=== PATIENT | male | born 1950 | race Caucasian/White ===

== ENCOUNTER 2016-08-19 21:14 | Emergency (ER) | payer MEDICARE, OTHER ==
[~2016-08-19] VITALS: Ht 165.1 cm; Wt 75.5 kg
[2016-08-19 21:16] VITALS: Ht 165.1 cm; Wt 75.5 kg
[2016-08-19] MEDS ORDERED: ONDANSETRON 4 MG INJ IV STA (21:36)
[2016-08-19] MEDS ORDERED: morphine 4 MG/ML VIAL IV STA (21:36)
[2016-08-19] MEDS ORDERED: DIPHTH/TET/ACEL PERTUSS (ADULT) 0.5 ML VIAL IM* ONE (22:00)
[2016-08-19] MEDS ORDERED: CEFAZOLIN 2 GM/50 ML (PMX) 50 ML IVPB ONE (22:00)
[2016-08-19 22:11] LABS: ADD SCAN DIFF NO
--- NOTE | 2016-08-19 22:14 | RADRPT ---
PROCEDURE: X-ray right hand CLINICAL INDICATION: Trauma to the right hand TECHNIQUE: 3 views right hand COMPARISON: None FINDINGS: Soft tissue and osseous crush injury at the distal right index finger, with comminuted fracture of t he proximal metaphysis and mid-diaphysis of the second distal phalanx. Crush injury also seen at th e distal third finger of the right hand, with transverse fracture of the distal metaphysis of the th ird middle phalanx. No definite retained radiopaque foreign material in the regions of injury. IMPRESSION: Fractures of the second distal phalanx and third middle phalanx of the right hand. RPTAT: [facility] Physician Raj Date Time Electronically viewed and signed by Physician Raj on 08/19/2016 22:14 RS/
[2016-08-19 22:18] LABS: BASOPHIL # 0.1 10^3/ul (0.0-0.1); BASOPHILS % 0.7 % (0.0-2.0); EOSINOPHILS # 0.2 10^3/ul (0.0-0.5); EOSINOPHILS % 2.9 % (0.0-7.0); HEMATOCRIT 40.9 % (42.0-52.0); HEMOGLOBIN 13.3 g/dl (14.0-18.0); LYMPHOCYTES # 2.2 10^3/ul (0.8-2.9); LYMPHOCYTES % 28.8 % (15.0-51.0); MEAN CORPUSCULAR HEMOGLOBIN 29.7 pg (29.0-33.0); MEAN CORPUSCULAR HGB CONC 32.5 g/dl (32.0-37.0); MEAN CORPUSCULAR VOLUME 91.3 fl (82.0-101.0); MONOCYTE # 0.8 10^3/ul (0.3-0.9); MONOCYTES % 10.2 % (0.0-11.0); NEUTROPHIL # 4.3 10^3/ul (1.6-7.5); PLATELET COUNT 199 10^3/UL (140-415); RED BLOOD COUNT 4.48 10^6/ul (4.70-6.10); RED CELL DISTRIBUTION WIDTH 12.5 % (11.5-14.5); WHITE BLOOD COUNT 7.6 10^3/ul (4.8-10.8)
[2016-08-19 22:32] LABS: INR 1.12; PROTIME 14.4 Sec (12.2-14.2); PT RATIO 1.1
[2016-08-19 22:33] LABS: PARTIAL THROMBOPLASTIN TIME 25.2 Sec (25.0-35.0)
[2016-08-19 22:38] LABS: ALBUMIN 4.5 g/dl (3.3-4.9); ALBUMIN/GLOBULIN RATIO 1.5; BILIRUBIN,INDIRECT 0.3 mg/dl (0-1.1); BILIRUBIN,TOTAL 0.3 mg/dl (0.2-1.3); CALCIUM 9.5 mg/dl (8.4-10.2); CREATININE 1.18 mg/dl (0.61-1.24); POTASSIUM 3.8 mmol/L (3.5-5.1); TOTAL PROTEIN 7.5 g/dl (6.1-8.1)
--- NOTE | 2016-08-20 00:13 | ERD ---
ER Documentation Chief Complaint Date/Time DATE: 08/20/16 TIME: 00:09 Chief Complaint car terri fell on his fingers, laceration with bone exposed HPI This is a 66-year-old male suffered a laceration and fracture to his right hand while working on a car. Obvious deformity noted at distal tip of index finger with bony open fracture. Patient denies any other trauma. ROS All systems reviewed and are negative except as per history of present illness. Allergies Allergies: Coded Allergies: No Known Allergy (Unverified , 08/19/16) PMhx/Soc Medical and Surgical Hx: pt denies Medical Hx, pt denies Surgical Hx Hx Alcohol Use: No Hx Substance Use: No Hx Tobacco Use: No Smoking Status: Never smoker Physical Exam Vitals Vital Signs Date Time Temp Pulse Resp B/P Pulse Ox O2 Delivery O2 Flow Rate FiO2 08/19/16 23:00 74 18 160/74 98 Room Air 08/19/16 21:16 97.8 78 26 174/84 97 Physical Exam Const: [] Head: Atraumatic Eyes: Normal Conjunctiva ENT: Normal External Ears, Nose and Mouth. Neck: Full range of motion..~ No meningismus. Resp: Clear to auscultation bilaterally Cardio: Regular rate and rhythm, no murmurs Abd: Soft, non tender, non distended. Normal bowel sounds Skin: No petechiae or rashes Back: No midline or flank tenderness Ext: Amputation of distal tip of index finger held together with soft tissue only Neur: Awake and alert Psych: Normal Mood and Affect Result Diagram: 08/19/16214708/19/162147 Results 24 hrs Laboratory Tests Test 08/19/16 21:48 White Blood Count 7.610^3/ul Red Blood Count 4.4810^6/ul Hemoglobin 13.3g/dl Hematocrit 40.9% Mean Corpuscular Volume 91.3fl Mean Corpuscular Hemoglobin 29.7pg Mean Corpuscular Hemoglobin Concent 32.5g/dl Red Cell Distribution Width 12.5% Platelet Count 88856^3/UL Mean Platelet Volume 10.0fl Neutrophils % 57.0% Lymphocytes % 28.8% Monocytes % 10.2% Eosinophils % 2.9% Basophils % 0.7% Nucleated Red Blood Cells % 0.0/100WBC Neutrophils # 4.310^3/ul Lymphocytes # 2.210^3/ul Monocytes # 0.810^3/ul Eosinophils # 0.210^3/ul Basophils # 0.110^3/ul Nucleated Red Blood Cells # 0.010^3/ul Prothrombin Time 14.4Sec Prothrombin Time Ratio 1.1 INR International Normalized Ratio 1.12 Activated Partial Thromboplast Time 25.2Sec Sodium Level 145mmol/L Potassium Level 3.8mmol/L Chloride Level 104mmol/L Carbon Dioxide Level 25mmol/L Anion Gap 20 Blood Urea Nitrogen 21mg/dl Creatinine 1.18mg/dl Glucose Level 161mg/dl Calcium Level 9.5mg/dl Total Bilirubin 0.3mg/dl Direct Bilirubin 0.00mg/dl Indirect Bilirubin 0.3mg/dl Aspartate Amino Transf (AST/SGOT) 22IU/L Alanine Aminotransferase (ALT/SGPT) 27IU/L Alkaline Phosphatase 75IU/L Total Protein 7.5g/dl Albumin 4.5g/dl Globulin 3.00g/dl Albumin/Globulin Ratio 1.50 Current Medications Medications (Trade) Dose Ordered Sig/Aristeo Route PRN Reason Start Time Stop Time Status Last Admin Dose Admin Diphtheria/ Tetanus/Acell Pertussis (Adacel) 0.5 ml ONCE ONCE IM* 08/19/16 22:00 08/19/16 22:01 DC 08/19/16 21:47 Morphine Sulfate (morphine) 4 mg ONCE STAT IV 08/19/16 21:36 08/19/16 21:38 DC 08/19/16 21:47 Ondansetron HCl 4 mg 4 mg ONCE STAT IV 08/19/16 21:36 08/19/16 21:38 DC 08/19/16 21:47 Cefazolin Sodium/ Dextrose (Ancef 2 Gm/50 ml (Pmx)) 50 ml @ 100 mls/hr ONCE ONCE IVPB 08/19/16 22:00 08/19/16 22:29 DC 08/19/16 22:12 Procedures/MDM X-ray Hand 3V interpreted by me: Scaphoid: [Normal] Bones: Multiple fractures on index and middle finger Joints: [No dislocation] Foreign body: [None] Medical decision-making: Very pleasant patient who has essentially an avulsion of bone with an open fracture. Started on Ancef here. Tetanus updated. Transferred to [facility]. Accepting physician is Departure Diagnosis: Primary Impression: Open fracture Additional Impression: Avulsion, finger tip Encounter type: initial encounter Qualified Code: S61.209A - Avulsion, finger tip, initial encounter Condition: Serious SHIVA BARRAZA Aug 20, 2016 00:12
[2016-08-20 00:36] VITALS: BP 144/71; PULSE 75; RESP 20; TEMP 98.1
== END 2016-08-20 00:49 | disposition short-term general hospital (02) ==
LOC: FTE 21:14
DX: S62.622B Displaced fracture of middle phalanx of right middle finger, initial encounter for open fracture (principal); S62.630B Displaced fracture of distal phalanx of right index finger, initial encounter for open fracture; S61.200A Unspecified open wound of right index finger without damage to nail, initial encounter; M79.641 Pain in right hand; W20.8XXA Other cause of strike by thrown, projected or falling object, initial encounter; Y92.9 Unspecified place or not applicable; Z23 Encounter for immunization
CPT/HCPCS: 36415; 73130; 80053; 85025; 85610; 85730; 86850; 86900; 86901; 90471; 90715; 96374; 96375; 99285; J0690; J2270; J2405